=== PATIENT | male | born 1940 | race Caucasian/White ===

== ENCOUNTER 2020-03-01 09:28 | Day surgery (SDC) | payer MEDICARE ==
[~2020-03-01] VITALS: Ht 172.7 cm; Wt 81.6 kg
[~2020-03-01 09:28] MED LIST: AMANTADINE100 M1 PO; ASPIRIN EC81 M1 PO; BENICAR40 MG PO; CALCIUM CITRAT1 EAC8 PO; LEVO-T50 MCG PO; LIPITOR20 MG PO; METHENAMINE HIPP1 G1 PO; MULTI VITAMIN1 EACH PO; NEXIUM20 MG PO; NORVASC5 M1 PO; STOOL SOFTENER100 MG PO; SUPER B-50 COM1 EACH PO; VITAMIN C500 M2 PO; VITAMIN D350 MC3 PO; VITAMIN E400 UNI2 PO
[2020-03-01 10:43] VITALS: BP 121/61
--- NOTE | 2020-03-05 06:19 | O ---
[facility] [place] [address] OPERATIVE REPORT Name: CASSY ZIMMERMAN Room #: DEP [facility].#: [id number] Admission: 03/01/20 Attend Phys: Ramo Mcgrath MD Discharge: 03/01/20 Date of : 42 Report #: [id number] THIS REPORT FOR: cc: Arias Cali MD, David L. MD White, William L. 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 PREOPERATIVE DIAGNOSIS: Unilateral right lower lid entropion. POSTOPERATIVE DIAGNOSIS: Unilateral right lower lid entropion. OPERATION PERFORMED: Unilateral right lower lid entropion repair. ANESTHESIA: Local with IV sedation. COMPLICATIONS: None. INDICATIONS FOR PROCEDURE: This patient has unilateral lower lid entropion with chronic irritation and discharge. The current procedure is being undertaken in order to improve the patient's level of comfort and visual function. Informed consent was obtained to include but not limited to the loss of vision, bleeding, infection, scarring, failure to improve the problem and need for further surgery. DESCRIPTION OF OPERATION: The patient was taken to the operating room, where 2% Xylocaine with epinephrine mixed with equal parts of 0.75% Marcaine with Wydase was administered transcutaneously and transconjunctivally to the lower lid and lateral canthal area. The patient was then prepped and draped in the usual sterile fashion. A Willie clamp was used to clamp the lateral canthus, following which a sharp canthotomy and cantholysis were performed. Hemostasis was achieved with a monopolar cautery, as it was throughout the case. A tarsal strip was prepared laterally, removing the lash-bearing portion of the redundant lid margin and the redundant tarsal plate. A transconjunctival dissection was then undertaken just inferior to the lower border of the tarsal plate. The lower lid retractors were disinserted from the inferior border of the tarsal plate. The lower lid retractors were then advanced and reattached to the [address] [address] OPERATIVE REPORT Name: CASSY ZIMMERMAN Room #: [place] [facility] [place].#: [id number] Admission: 03/01/20 Attend Phys: Ramo Mcgrath MD Discharge: 03/01/20 Date of : 42 Report #: [id number] anterior surface of the tarsal plate with mattress 5-0 chromic sutures passed transconjunctivally and secured in the infraciliary margin. The tarsal strip was then secured laterally with 2 interrupted 5-0 Prolene sutures. The subcutaneous structures and the skin were then closed with multiple interrupted 6-0 plain gut sutures so the lateral canthal angle was sharply reformed. The wound was then cleaned and dressed with ophthalmic antibiotic ointment. The patient was then transported to the recovery area having tolerated the procedure well with no anesthetic or operative complications being noted. <ELECTRONICALLY SIGNED> By: Ramo Mcgrath MD 03/05/20 0619 [id number] Ramo Mcgrath MD /nt
== END 2020-03-01 13:45 | disposition home or self-care (01) ==
LOC: OR 09:28 → TBA 09:28 → OR 10:21
PROVIDERS: ATTEND Ophthalmology
DX: H02.002 Unspecified entropion of right lower eyelid (principal); I10 Essential (primary) hypertension; E78.5 Hyperlipidemia, unspecified; K21.9 Gastro-esophageal reflux disease without esophagitis; Z20.828 Contact with and (suspected) exposure to other viral communicable diseases; Z98.890 Other specified postprocedural states; Z79.899 Other long term (current) drug therapy; Z87.891 Personal history of nicotine dependence; Z87.820 Personal history of traumatic brain injury; Z93.3 Colostomy status; Z85.51 Personal history of malignant neoplasm of bladder; Z86.2 Personal history of diseases of the blood and blood-forming organs and certain disorders involving the immune mechanism; Z98.41 Cataract extraction status, right eye; Z98.42 Cataract extraction status, left eye
CPT/HCPCS: 50010; 50101; 50386; 50398; 51636; 56527; 56531; 62110; 62850; 70005